=== PATIENT | female | born 1975 | race Caucasian/White ===

== ENCOUNTER → 2021-03-10 12:15 | Outpatient (BNVA) | payer BC, SELFPAY | PROVIDERS: Visit Provider Nurse Practitioner Family | DX: Z20.822 Contact with and (suspected) exposure to COVID-19 (principal) | CPT/HCPCS: 87635 ==

== ENCOUNTER 2022-07-06 12:40 | Emergency (ER) | payer OTHER, BC, SELFPAY ==
[2022-07-06 12:44] VITALS: BP 142/85; PULSE 76; RESP 15; O2SAT 99; BMI 30.9
--- NOTE | 2022-07-06 12:56 | XR_ITS ---
WS: [id number] Cervical spine, 3 views, 07/06/2022 Clinical Data: fall injury, tenderness, normal rom Comparison: None. Findings: No compression fractures are seen. The disc heights are normal. There is a small calcificat ion anterior to the inferior portion of the C6 vertebral body and a small spur at the anterior superi or portion of C7. There is no prevertebral soft tissue swelling. The odontoid is unremarkable. The luke ng apices are normal. There is calcification on the right at the level of the carotid bifurcation. XR/XR cervical spine 3V* [id number] Impression: Minimal osteoarthritic spurring at C6-C7.
--- NOTE | 2022-07-06 12:56 | XR_ITS ---
WS: [id number] Left shoulder, 4 views, 07/06/2022 Clinical Data: fall injury Comparison: None. Findings: No fractures are seen. The AC joint is slightly widened but there is no elevation.. The adjacent left clavicle, left scapula and ribs are normal. The soft tissues are unremarkable. XR/XR shoulder LT min 2V* [id number] Impression: Slight widening of the left AC joint with no elevation.
--- NOTE | 2022-07-06 12:58 | ED_ITS ---
HPI - Fall General: Chief Complaint: Fall Stated Complaint: fall, neck and left arm pain Time Seen by Provider: 07/06/22 12:50 History of Present Illness: 46-year-old female was on a ladder yesterday and fell approximately 3 feet onto her left side. Patient reports no loss of consciousness. Patient denies any severe headache or nausea and vomiting at this time. Patient reports some left- sided neck discomfort, left shoulder discomfort, left chest wall pain, and left elbow injury. Patient moves all extremities well. Patient appears no distress. Patient appears in mild pain. Patient denies any chronic medical problems. Associated symptoms-after fall: Denies chest pain or headache(s) Review of Systems General: Reports: 10 or more systems reviewed and unremarkable except in HPI and below Card: Denies: chest pain Resp: Denies: dyspnea GI: Denies: nausea or vomiting Musc: Reports: back pain, extremity pain and joint pain Neuro: Denies: headache(s) Physical Exam Const: COMMON NORMALS: alert HENMT: COMMON NORMALS: normocephalic HEAD & SCALP: normocephalic THROAT: posterior oropharynx normal Neck/C-Spine: CERVICAL SPINE: No Cervical spine tenderness and Yes Paracervical muscle tenderness Chest: CHEST: Yes tenderness rib (Left posterior) Resp: COMMON NORMALS: normal respiratory effort and clear to auscultation bilaterally AUSCULTATION: clear to auscultation bilaterally Cardio: COMMON NORMALS: regular rate and regular rhythm RATE: regular rate RHYTHM: regular rhythm GI: COMMON NORMALS: Soft to palpation and non-tender PALPATION: Yes Soft to palpation : COMMON NORMALS: Yes no CVA tenderness BLADDER/KIDNEY EXAM: Yes no CVA tenderness Back/Pelvis: COMMON NORMALS: no CVA tenderness Extremity: COMMON NORMALS: full ROM LEFT UPPER EXTREMITY: Yes shoulder joint (Posterior tenderness, normal range of motion) Left shoulder joint: Yes inspection and Yes palpation and Yes elbow joint (Posterior bruising and swelling) Neuro: SENSORIUM/ORIENTATION: Yes alert Skin: COMMON NORMALS: turgor normal GENERAL SKIN EXAM: turgor normal Course Vital Signs: Vital signs: Vital Signs Pulse Rate 76 07/06/22 12:44 Respiratory Rate 15 07/06/22 12:44 Blood Pressure 142/85 07/06/22 12:44 Pulse Oximetry 99 07/06/22 12:44 Oxygen Delivery Me thod Room Air 07/06/22 12:44 MDM - Fall Medical Decision Making 46-year-old female comes in today for complaints of injury sustained from fall to the left side. On exam patient moves all extremities well. Pupils are equal and reactive. Patient has some muscle tenderness to the left paraspinal cervical spine. No tenderness is noted along the spine. Mild discomfort is noted to the left posterior rib. No crepitus or flailing is noted. Lungs are clear to auscultation bilaterally. Patient has normal range of motion of the left shoulder with some posterior tenderness on palpation. Left elbow notes a b ruise with some mild swelling posteriorly. Patient has good range of motion of the joint. Distal pulses and sensation are intact. Differential diagnosis includes multiple contusions, strain, fracture. X-ray of the shoulder, elbow, and neck noted a AC joint separation and some arthritis to the cervical spine. No fractures or other abnormalities were noted. Reviewed exam with patient with recommendations for treatment and follow-up. Patient reported understanding and agreed to plan. Lab Data Radiology Impressions Cervical Spine X-Ray 07/06/22 12:56 Impression: Minimal osteoarthritic spurring at C6-C7. Shoulder X-Ray 07/06/22 12:56 Impression: Slight widening of the left AC joint with no elevation. Elbow X-Ray 07/06/22 13:00 Impression: Negative left elbow. Discharge Plan Discharge Patient Disposition: Home Clinical Impression: Neck and shoulder pain Fall from ladder Qualifiers: Encounter type: initial encounter Qualified Code(s): W11.XXXA - Fall on and from ladder, initial encounter Contusion of elbow Qualifiers: Encounter type: initial encounter Laterality: left Qualified Code(s): S50.02XA - Contusion of left elbow, initial encounter Separation of AC joint Qualifiers: Encounter type: initial encounter Laterality: left Qualified Code(s): S43.102A - Unspecified dislocation of left acromioclavicular joint, initial encounter Condition: Stable Prescriptions: No Action No Known Home Medications Discharge Orders: Discharge ED (Routine); Ordered 07/06/22 Ordered By: Gagandeep Sen Discharge Diet: Usual diet Discharge Activity: Increase activity as tolerated Patient Instructions: Acromioclavicular Separation (ED) Activity Restrictions/Additional Instructions: Home and rest. Activity as tolerated. Gentle stretching and range of motion exercises. Use acetaminophen and ibuprofen for pain. Use ice packs for further pain relief. Follow-up with primary care for further evaluation and instruction on AC joint separation. Return to ED for new concerns. Coding Level of Care Code ED Reception Manager for Mildred Nuñez
--- NOTE | 2022-07-06 13:00 | XR_ITS ---
WS: [id number] Left elbow, 3 views, 07/06/2022 Clinical Data: fall injury Comparison: None. Findings: No fractures or dislocations are seen. The radial head is normal. The soft tissues are unremarkable. XR/XR elbow LT min 3V* [id number] Impression: Negative left elbow.
--- NOTE | 2022-07-15 09:20 | DCPLANNER ---
TCM called patient due to no primary care physician - no answer at this time.
== END 2022-07-06 13:49 | disposition home or self-care (01) ==
PROVIDERS: Emergency Provider Nurse Practitioner Family
DX: S50.02XA Contusion of left elbow, initial encounter (principal); S43.102A Unspecified dislocation of left acromioclavicular joint, initial encounter; M54.2 Cervicalgia; W11.XXXA Fall on and from ladder, initial encounter
CPT/HCPCS: 72040; 73030; 73080; 99284

== ENCOUNTER 2024-02-04 07:26 | Outpatient (CLI) | payer SELFPAY ==
[2024-02-04 08:17] LABS: HF Add Manual Diff No
[2024-02-04 08:18] LABS: Basophils # 0.1 10^3/uL (0.0-0.1); Basophils % 1.3 %; Eosinophils # 0.4 10^3/uL (0.0-0.8); Eosinophils % 3.9 %; Hematocrit 42.5 % (36-47); Lymphocytes # 2.5 10^3/uL (0.8-4.8); Lymphocytes % 27.1 %; Mean Corpuscular HGB Conc 33.2 g/dL (30-55); Mean Corpuscular Hemoglobin 31.3 pg (27-33); Mean Corpuscular Volume 94.4 fl (85-98); Mean Platelet Volume 9.3 fL (7.4-10.4); Monocytes # 0.6 10^3/uL (0.2-0.9); Monocytes % 6.1 %; Neutrophils # 5.68 10^3/uL (1.8-7.7); Neutrophils % 61.3 %; Nucleated Red Blood Cells % 0 %; Platelet Count 306 10^3/cmm (157-399); White Blood Count 9.27 10^3/uL (3.29-11.43)
[2024-02-04 08:40] LABS: Estmated Average Glucose 105; Hemoglobin A1C 5.3 % (4.0-6.0)
[2024-02-04 08:56] LABS: Alanine Aminotransferase 14 U/L (0-33); Albumin Level 4.1 g/dL (3.5-5.2); Alkaline Phosphatase 53 U/L (35-105); Aspartate Amino Transferase 17 U/L (0-32); Blood Urea Nitrogen 10 mg/dL (6-20); Calcium 8.9 mg/dL (8.5-10.5); Carbon Dioxide 23 mmol/L (22-29); Chloride 103 mmol/L (98-107); Chol HDL Ratio 5.08 mg/dL (0.0-4.40); Cholesterol 244 mg/dL (0-200); Glomerular Filtration Rate 132.8 mL/min (90-130); Glucose 94 mg/dL (65-115); HDL Cholesterol 48 mg/dL (60-100); LDL Cholesterol Calculated 162 mg/dL (50-129); LDL HDL Ratio 3.38 RATIO (0.00-3.22); Osmolality Calculated 279 mOsm/kg (285-295); Sodium 135 mmol/L (136-145); Thyroid Stimulating Hormone 2.17 uIU/mL (0.27-4.20); Total Bilirubin 0.3 mg/dL (0.15-1.2); Total Protein 7.1 g/dL (6.6-8.7); Triglycerides 170 mg/dL (0-150)
== END 2024-02-04 07:27 | disposition home or self-care (01) ==
LOC: LAB 07:28
PROVIDERS: Visit Provider Dermatology
DX: Z13.9 Encounter for screening, unspecified (principal)
CPT/HCPCS: 36415

== ENCOUNTER 2024-08-07 13:19 | Outpatient (CLI) | payer BC, SELFPAY ==
--- NOTE | 2024-08-07 13:20 | MM_ITS ---
WS: [id number] BILATERAL 3D TOMOSYNTHESIS DIGITAL SCREENING MAMMOGRAPHY WITH CAD CLINICAL INFORMATION: routine screening for breast cancer HISTORY: Screening mammogram. No current complaints. COMPARISON: Baseline TECHNIQUE: Bilateral CC and MLO views. FINDINGS: Scattered fibroglandular densities bilaterally. No suspicious focal mass, asymmetry, calcifications, or architectural distortion. No evidence of malignancy. MM/MM scr tomosynthesis [id number] IMPRESSION: DENSITY: There are scattered areas of fibroglandular density. BI-RADS: 1 - Negative. FOLLOW UP: 1 Year Follow-up Recommend return to annual screening mammography.
== END 2024-08-07 13:20 | disposition home or self-care (01) ==
LOC: RAD 13:20
PROVIDERS: PCP Family Medicine; Visit Provider Family Medicine
DX: Z12.31 Encounter for screening mammogram for malignant neoplasm of breast (principal); R92.323 Mammographic fibroglandular density, bilateral breasts
CPT/HCPCS: 77063; 77067

== ENCOUNTER 2025-01-05 06:00 | Day surgery (SDC) | payer BC, SELFPAY ==
[2025-01-05 06:18] VITALS: BP 134/81; PULSE 89; RESP 18; TEMP 36.3; O2SAT 96; BMI 30.9
--- NOTE | 2025-01-05 07:07 | W.PM.OPSFHP ---
Same Day Surgery H&P Indication for Procedure/HPI DATE OF PROCEDURE: January 05, 2025 CHIEF COMPLAINT/INDICATIONFOR SURGICAL PROCEDURE: screening colonoscopy PREOP DIAGNOSIS: screening colonoscopy PLANNED PROCEDURE: Operation Date: 01/05/25 07:00 Proposed Procedures p Colonoscopy [id number] G0121 Z12.11(Not Applicable) - Krystian Fisher MD Medications/Allergies* Home Medications ?Medication ?Instructions ?Recorded ?Confirmed ?Type No Known Home Medications 03/10/21 12/31/24 History Allergies/Adverse Reactions Allergy/AdvReac Type Severity Reaction Status Date / Time No Known Allergies Allergy Verified 01/05/25 06:15 Pertinent History/Comorbid Conditions* Surgical History (Updated 07/29/24 @ 10:42 by Beverley Gabriel MD) History of oral surgery Family History (Updated 07/29/24 @ 10:44 by Beverley Gabriel MD) Diabetes mellitus, type 2 Grandfather Dementia Grandfather, Onset Age: 90 Breast cancer Family/Other Stroke Father Social History Smoking and tobacco/nicotine status: never used tobacco/nicotine Alcohol intake: current Alcohol intake frequency: few times a month Substance/Drug Use: current Substance/Drug use frequency: daily Household members: spouse Marital status: Number of children: 1 Number of grandchildren: 1 Current occupational status: employed Current occupation: [employer] Leisure activites: reading Special julio needs: No Agree to transfusion: Yes Pertinent Exam Findings alert, oriented x 3, clear to auscultation bilaterally, regular rate & rhythm and procedure specific exam findings abdomen soft, nt, nd Recommendations Risks and benefits of procedure reviewed and Patient/family agree to proceed Surgery/Procedure today Other Plans: I have explained the risks and benefits of a screening colonoscopy and the patient agrees to proceed. Patient is average for colon cancer. Patient understands that hemoccult is an alternative and still decides to proceed with colonoscopy. Had an extensive discussion with the patient. Answered all questions. Patient understands that the risks include a 1% risk of iatrogenic perforation and risk of aspiration. Coding Level of Care Code Acute Code for g Fwd
--- NOTE | 2025-01-05 07:09 | P.ANESASSM_ITS ---
Pre-Anesthetic Assessment Height/Weight: Height 1.6 m Weight 79.379 kg Temp Pulse Resp BP Pulse Ox O2 Del Method 97.3 F L 89 18 134/81 96 Room Air 01/05/25 06:18 01/05/25 06:18 01/05/25 06:18 01/05/25 06:18 01/05/25 06:18 01/05/25 06:18 Preop Diagnosis: screening colonoscopy Operation Date: 01/05/25 07:00 Proposed Procedures p Colonoscopy [id number] G0121 Z12.11(Not Applicable) - Krystian Fisher MD Familial anesthetic complications: None Was Beta Tony taken within 24 hours: N/A Was Clonidine taken within 24 hours: N/A Last intake: Intake Last Liquid Date 01/04/25 Last Liquid Time 20:00 Last Solid Date 01/03/25 Last Solid Time 18:00 Social No alcohol and No tobacco Exam alert, oriented x 3, clear to auscultation bilaterally and regular rate & rhythm Anesthetic Plan ASA status: 1 Anesthesia: MAC Risk of > 500 ml blood loss (7ml/kg in children): No Medications/Allergies Home Medications ?Medication ?Instructions ?Recorded ?Confirmed ?Last Taken ?Type No Known Home Medications 03/10/21 110 08/19 Unknown History Allergies Allergy/AdvReac Type Severity Reaction Status Date / Time No Known Allergies Allergy Verified 01/05/25 06:15 COUNTS INCLUDE 234 BEDS AT THE [facility] Anesthesia Surgical History History of oral surgery Family History Father Stroke Family/Other Breast cancer Grandfather Diabetes mellitus, type 2 Dementia, Onset Age: 90 Social History Smoking and tobacco/nicotine status: never used tobacco/nicotine Alcohol intake: current Alcohol intake frequency: few times a month Substance/Drug Use: current Substance/Drug use frequency: daily Household members: spouse Marital status: Number of children: 1 Number of grandchildren: 1 Current occupational status: employed Current occupation: [employer] Leisure activites: reading Special julio needs: No Agree to transfusion: Yes Female Reproductive History Date of last menstrual period: 12/26/24
[2025-01-05 07:31] VITALS: BP 114/79; PULSE 72; RESP 16; TEMP 36.1; O2SAT 100
[2025-01-05 07:53] VITALS: BP 139/82; PULSE 64; RESP 18; O2SAT 100
[2025-01-06 08:32] LABS: OR HCG Qualitative Urine Negative (Negative)
== END 2025-01-05 08:10 | disposition home or self-care (01) ==
PROVIDERS: Anesthesiology; PCP Family Medicine; Visit Provider Student in an Organized Health Care Education/Training Program
PROC: 0DJD8ZZ Inspection of Lower Intestinal Tract, Via Natural or Artificial Opening Endoscopic (ICD-10-PCS; CPT 45378; principal; 2025-01-05 07:00)
DX: Z12.11 Encounter for screening for malignant neoplasm of colon (principal); K57.30 Diverticulosis of large intestine without perforation or abscess without bleeding; K63.5 Polyp of colon
CPT/HCPCS: 45385; 81025; 88305; J2704; J3490; J7030